=== PATIENT | male | born 2000 | race Caucasian/White ===

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

== ENCOUNTER 2018-05-16 13:38 | Emergency (ER) | payer MEDICAID ==
--- NOTE | 2018-05-16 14:26 | EDPHY ---
H & P Stated Complaint: allergic reaction to nuts/hives /sob getting better post benadryl Time Seen by Provider: 05/16/18 14:22 - Personal History Current Tetanus/Diphtheria Vaccine: Yes - Medical/Surgical History Hx Asthma: Yes Hx Chronic Respiratory Disease: No Hx Diabetes: No Hx Cardiac Disease: No Hx Renal Disease: No Hx Cirrhosis: No Hx Alcoholism: No Hx HIV/AIDS: No Hx Splenectomy or Spleen Trauma: No Other PMH: med hx-none. surg-none - Social History Smoking Status: Never smoked Constitutional: Initial Vital Signs Temperature (C) 36.5 C 05/16/18 13:45 Heart Rate 67 05/16/18 13:45 Respiratory Rate 18 05/16/18 13:45 Blood Pressure 116/72 05/16/18 13:45 O2 Sat (%) 96 05/16/18 13:45 O2 Delivery Mode Room Air Allergies/Adverse Reactions: sesame oil [Sesame Oil] Allergy (Verified 05/16/18 13:44) tree nut [Tree Nut] Allergy (Verified 05/16/18 13:44) Home Medications: Medication Instructions Recorded EPINEPHRINE [EPIPEN] 0.3 mg IM ONCE #2 syr 05/29/16 Benadryl 05/16/18 EPINEPHrine [Epipen 0.3 MG] 0.3 mg IM ONCE #2 syr 05/16/18 Famotidine [Pepcid 20 MG (OTC)] 20 mg PO DAILY #10 tab 05/16/18 predniSONE 40 mg PO DAILY #10 tab 05/16/18 Medical Decision Making ED Course/Re-evaluation: CHIEF COMPLAINT: Allergic reaction to nuts HISTORY OF PRESENT ILLNESS: The patient is a 18 y/o male with a known nut allergy complaining of shortness of breath and hives after accidently eating nuts today. The patient at a slice of cake which he did not know the ingredients of. Shortly after eating the cake he began to have an allergic reaction including shortness of breath, hives, chest pain, chest pressure, and facial pressure. He did not use his EpiPen as he could not find it and believes it is . He decided to present to an urgent care for his symptoms. They gave him 50 mg PO Benadryl, but were unable to give him more medications as they could not monitor his heart rate. Because of this, he decided to present to the emergency department. He is no longer feeling symptomatic. Denies headache, abdominal pain, urinary or bowel complaints, fever, numbness, paresthesias. REVIEW OF SYSTEMS: A 10 point review of systems was performed and is negative with the exception of the elements mentioned in the history of present illness. PHYSICAL EXAM: HR, BP, O2 Sat, RR. Temp noted General Appearance: Alert, well hydrated, appropriate, and non-toxic appearing. Head: Atraumatic without scalp tenderness or obvious injury Eyes: Pupils equal, round, reactive to light and accommodation, EOMI, no trauma , no injection. Ears: Clear bilaterally, no perforation, normal landmarks Nose: Atraumatic, no rhinorrhea, clear. Throat: No oropharyngeal or mucosal edema. There is no erythema or exudates, no lesions, normal tonsils, mucus membranes moist. Neck: Supple, nontender, no lymphadenopathy. Respiratory: No retractions, no distress, no wheezes, and no accessory muscle use. Lungs are clear to auscultation bilaterally. Cardiovascular: Regular rate and rhythm, no murmurs, rubs, or gallops. Bilateral carotid, radial, dorsalis pedis, and posterior tibial pulses intact. Good capillary refill all extremities. Gastrointestinal: Abdomen is soft, nontender, non-distended, no masses, no rebound, no guarding, no peritoneal signs. Musculoskeletal: Normal active ROM of all extremities, atraumatic. Neurological: Alert, appropriate, and interactive. The patient has normal DTRs and non-focal cranial nerves, motor, sensory, and cerebellar exam. Skin: No rashes, good turgor, no nodules on palpation. Past medical history: Denies Past surgical history: Denies Family history: Denies Social history: Lives in [place], single, student at DIFFERENTIAL DIAGNOSIS: The differential diagnosis included but was not limited to angioedema, anaphylaxis, anaphylactoid reaction, urticarial reaction, and other infectious causes for skin rash. MEDICAL DECISION MAKING: The patient is a 18 y/o male with a known nut allergy presenting with resolved chest pain, shortness of breath and hives after accidently eating nuts today. He received 50 mg PO Benadryl at an urgent care, but was advised to present to the emergency department for further evaluation. On exam he has no oropharyngeal or mucosal edema. He is not currently having an anaphylactic reaction. Laboratory and imaging studies are not indicated at this time; 40mg PO Pepcid and 50mg PO Prednisone given. Reassessed patient, he continues to remain asymptomatic. I have prescribed him Pepcid, Prednisone, and several EpiPen's. Return precautions provided; patient is comfortable with this plan. - Data Points Medications Given: Discontinued Medications Famotidine (Pepcid) 40 mg PO EDNOW ONE Stop: 05/16/18 14:32 Last Admin: 05/16/18 14:39 Dose: 40 mg Prednisone (Prednisone) 40 mg PO EDNOW ONE Stop: 05/16/18 14:32 Last Admin: 05/16/18 14:39 Dose: 40 mg Departure - Departure Disposition: Home, Routine, Self-Care Clinical Impression: Allergic reaction Qualifiers: Encounter type: initial encounter Qualified Code(s): T78.40XA - Allergy, unspecified, initial encounter Condition: Good Instructions: General Allergic Reaction (ED), Peanut Allergy (ED) Additional Instructions: 1. Take Prednisone and Pepcid as prescribed. 2. Follow-up with your primary doctor within 72 hours. Use [id number] Benadryl as directed for itching. 3. Return to the Emergency Department for shortness of breath, difficulty swallowing, difficulty breathing, worsening of rash, fever or other worsening of condition. 4. Use EpiPen in case of allergic emergency. Referrals: [facility],. [Clinic] - As per Instructions Prescriptions: EPINEPHrine [Epipen 0.3 MG] 0.3 mg IM ONCE #2 syr Famotidine [Pepcid 20 MG (OTC)] 20 mg PO DAILY #10 tab predniSONE 40 mg PO DAILY #10 tab Report Scribed for: Klever Ledezma Report Scribed by: Jen Maynard Date of Report: 05/16/18 Time of Report: 14:23
[2018-05-16] MEDS ORDERED: FAMOTIDINE 20 MG TAB PO ONE (14:31)
[2018-05-16] MEDS ORDERED: predniSONE 20 MG TAB PO ONE (14:31)
[2018-05-16 14:43] VITALS: BP 112/70
== END 2018-05-16 14:42 | disposition home or self-care (01) ==
DX: T78.1XXA Other adverse food reactions, not elsewhere classified, initial encounter (principal); J45.909 Unspecified asthma, uncomplicated
CPT/HCPCS: J7512

== ENCOUNTER → 2018-10-04 | Outpatient (CLI) | payer MEDICAID | LOC: BMCIMAGING 14:29 | PROVIDERS: ATTEND Internal Medicine | DX: M79.674 Pain in right toe(s) (principal); M79.89 Other specified soft tissue disorders ==